=== PATIENT | male | born 1990 | race Caucasian/White ===

== ENCOUNTER 2024-04-20 08:24 | Emergency (ER) | payer BC, SELFPAY ==
[2024-04-20 08:28] VITALS: BP 130/74; PULSE 78; RESP 20; TEMP 36.8; O2SAT 100
--- NOTE | 2024-04-20 08:38 | ED.URI ---
HPI - URI/Sore Throat General Chief Complaint: Upper Respiratory Infection Stated Complaint: ears/throat/cough Source: patient Mode of arrival: ambulatory Limitations: no limitations History of Present Illness HPI Narrative: 34-year-old male presented for complaint of bilateral ear pressure for 2 days. He states about 4 days ago started with an intermittent fever and nasal congestion. Since then the fever has resolved. He denies shortness of breath, wheezing nausea, vomiting, fevers or body aches. Took Tylenol . Denies sick contacts. Related Data Allergies Allergy/AdvReac Type Severity Reaction Status Date / Time amoxicillin Allergy Severe Throat Verified 07/14/17 14:20 swelling egg Allergy Severe throat Verified 07/14/17 14:20 swelling Penicillins Allergy Severe swelling Verified 07/14/17 14:20 Dairy Allergy Intermediate GI Uncoded 07/14/17 14:20 Review of Systems Review of Systems: CONSTITUTIONAL: Denies malaise, chills, or fever. EYES: Denies visual changes, redness, or discharge. ENT: Denies rhinorrhea, sinus pain, and sore throat. Reports ear pain CARDIOVASCULAR: Denies chest pain, palpitations, or edema. RESPIRATORY: Denies cough or dyspnea. GASTROINTESTINAL: Denies abdominal pain, nausea, vomiting, diarrhea SKIN: Denies rash or itching. MUSCULOSKELETAL: Denies myalgia. NEUROLOGIC: Denies headache. All systems reviewed & are unremarkable except as noted in HPI and below PMFSH Comments At time of signature, agree with nursing past medical, surgical, social and family history. There is no relevant family history pertinent to the presenting complaint Exam Narrative: GENERAL: Well-appearing EYES: PERRLA, conjunctivae clear ENT: Nasal congestion. Mucous membranes moist. bilateral TMs erythematous, bulging and intact; canal not erythematous, no drainage, no tragal tenderness. Oropharynx not erythematous without lesions. Tonsils not enlarged and without exudate, no drooling, no hoarseness, no trismus, uvula midline. NECK: Supple. No lymphadenopathy CHEST: Clear to auscultation, breath sounds equal. No wheezing, rhonchi, rales, or stridor. No respiratory distress, speaks in full sentences. HEART: Regular rate and rhythm. No murmur heard. SKIN: Warm, dry, no rash. NEURO: Alert and oriented x3. PSYCH: Normal mood and affect Course Course Emergency Course: Patient is aware of diagnosis, understands and agrees to treatment plan. Anticipatory guidance given. Patient agrees to follow-up as directed and is aware of reasons to seek care at the emergency department. Portions of this record may have been created with voice recognition software Level of Care: Express Care Visit Vital Signs Vital signs: Vital Signs Temperature 98.3 F 04/20/24 08:28 Pulse Rate 78 04/20/24 08:28 Respiratory Rate 20 04/20/24 08:28 Blood Pressure 130/74 04/20/24 08:28 Pulse Oximetry 100 04/20/24 08:28 Oxygen Delivery Room Air 04/20/24 08:28 Temperature 98.3 F 04/20/24 08:28 Pulse Rate 78 04/20/24 08:28 Respiratory Rate 20 04/20/24 08:28 Blood Pressure 130/74 04/20/24 08:28 Pulse Oximetry 100 04/20/24 08:28 Oxygen Delivery Room Air 04/20/24 08:28 Reviewed Discharge Plan Discharge Clinical Impression: Otitis media Qualifiers: Otitis media type: suppurative Chronicity: acute Laterality: bilateral Recurrence: non-recurrent Spontaneous tympanic membrane rupture: without spontaneous rupture Qualified Code(s): H66.003 - Acute suppurative otitis media without spontaneous rupture of ear drum, bilateral Patient Disposition: Home, Self-Care Condition: Stable Instructions: Antibiotic Form, Ear Infection (ED) Additional Instructions: Take antibiotics as directed. Recommend antihistamine such as Benadryl, Zyrtec or Kacie along with Flonase nasal spray, 1 spray in each nostril once daily until symptoms improve Symptomatic treatment includes: rest, fluids, and increase
== END 2024-04-20 08:51 | disposition home or self-care (01) ==
PROVIDERS: Emergency Provider Nurse Practitioner Family
DX: H66.003 Acute suppurative otitis media without spontaneous rupture of ear drum, bilateral (principal)
CPT/HCPCS: 99203; G0463

== ENCOUNTER 2024-04-24 15:33 | Emergency (ER) | payer BC, SELFPAY ==
[2024-04-24 15:40] VITALS: BP 122/68; PULSE 84; RESP 14; TEMP 36.8; O2SAT 100
--- NOTE | 2024-04-24 16:18 | ED.EAR ---
HPI - Ear Problem General Chief complaint: Ear Stated complaint: Ear Pain Time Seen by Provider: 04/24/24 16:11 Source: patient, RN notes reviewed and old records reviewed Mode of arrival: ambulatory Limitations: no limitations History of Present Illness HPI Narrative: Patient presents today complaining of bilateral ear muffling. He was seen at [facility] on 04/20/2024 diagnosed with bilateral otitis media. At that time he was placed on doxycycline for 7 days. He has 3 more days left and states the pain is resolved but he continues to have some ear symptoms, left greater than right. He has also been taking some Robitussin and Tylenol at home as needed. Related Data Allergies Allergy/AdvReac Type Severity Reaction Status Date / Time amoxicillin Allergy Severe Throat Verified 04/24/24 15:38 swelling egg Allergy Severe throat Verified 04/24/24 15:38 swelling Penicillins Allergy Severe swelling Verified 04/24/24 15:38 Dairy Allergy Intermediate GI Uncoded 04/24/24 15:38 Review of Systems Review of Systems: CONSTITUTIONAL: Denies body aches, fever, chills, or sweats. EYES: Denies visual changes, redness, or discharge. ENT: Denies rhinorrhea, congestion, sore throat. + bilateral ear muffling CARDIOVASCULAR: Denies chest pain, palpitations, or edema. RESPIRATORY: Denies cough or dyspnea. GASTROINTESTINAL: Denies abdominal pain, nausea, vomiting, or diarrhea. GENITOURINARY: Denies dysuria or hematuria. SKIN: Denies rash, itching, or wounds. MUSCULOSKELETAL: Denies back pain, joint pain, or myalgia. NEUROLOGIC: Denies headache, numbness, tingling, or weakness. PSYCH: Denies depression or anxiety. PMFSH Comments At time of signature, I have reviewed and agree with nursing past medical, surgical, social and family history unless otherwise noted. Please see nursing chart for further information. There is no relevant family history pertinent to the presenting complaint Exam Narrative: GENERAL: Well-appearing, well-nourished, and in no acute distress. HEAD: Normocephalic, atraumatic. EYES: EOMI. No redness or drainage. Conjunctivae normal. ENT: Mucous membranes pink and moist. Nares clear. No rhinorrhea. Right TM normal. Left TM slightly erythematous with a mild effusion. Throat normal. Uvula midline. NECK: Normal AROM. CHEST: No respiratory distress. MUSCULOSKELETAL: No bony tenderness. EXTREMITIES: Normal range of motion. No edema. SKIN: Warm, dry, no rash. Capillary refill normal. Normal skin turgor. NEURO: No focal deficits. Alert and oriented x3. Gait steady. PSYCH: Normal affect. No signs of depression or anxiety. Course Course Level of Care: Express Care Visit Vital Signs Vital signs: Vital Signs Temperature 98.2 F 04/24/24 15:40 Pulse Rate 84 04/24/24 15:40 Respiratory Rate 14 04/24/24 15:40 Blood Pressure 122/68 04/24/24 15:40 Pulse Oximetry 100 04/24/24 15:40 Oxygen Delivery Room Air 04/24/24 15:40 Temperature 98.2 F 04/24/24 15:40 Pulse Rate 84 04/24/24 15:40 Respiratory Rate 14 04/24/24 15:40 Blood Pressure 122/68 04/24/24 15:40 Pulse Oximetry 100 04/24/24 15:40 Oxygen Delivery Room Air 04/24/24 15:40 Reviewed Medical Decision Making MDM Narrative Medical decision making narrative: Recommend patient continue his antibiotics and take a decongestant such as Sudafed or use an intranasal steroid such as Flonase for his muffling symptoms. Patient agrees with plan. Anticipatory guidance given. Differential Diagnosis Differential Diagnosis: Otitis media, otitis externa, ruptured TM, serous otitis, cerumen impaction Vital Signs Vital Signs: Vital Signs Temperature 98.2 F 04/24/24 15:40 Pulse Rate 84 04/24/24 15:40 Respiratory Rate 14 04/24/24 15:40 Blood Pressure 122/68 04/24/24 15:40 Pulse Oximetry 100 04/24/24 15:40 Oxygen Delivery Room Air 04/24/24 15:40 Temperature 98.2 F 04/24/24 15:40 Pulse
== END 2024-04-24 16:26 | disposition home or self-care (01) ==
PROVIDERS: Emergency Provider Nurse Practitioner
DX: H66.92 Otitis media, unspecified, left ear (principal)
CPT/HCPCS: 99211; G0463

== ENCOUNTER 2024-05-04 16:50 | Emergency (ER) | payer BC, SELFPAY ==
[2024-05-04 16:55] VITALS: BP 130/78; PULSE 68; RESP 20; TEMP 37.5; O2SAT 100
--- NOTE | 2024-05-04 17:01 | ED.URI ---
HPI - URI/Sore Throat General Chief Complaint: Upper Respiratory Infection Stated Complaint: Ear Pain/Cough/Sinus Pressure Time Seen by Provider: 05/04/24 17:01 Source: patient Mode of arrival: ambulatory Limitations: no limitations History of Present Illness HPI Narrative: 34 yo M presents with c/o L ear pain , sinus congestion and pressure and cough. Has had ear pain , sinus congestion, postnasal drainage for approx. 2 wks. Was seen here apr 24 with ear pain and given doxycycline and no improvement in pain. Denies fever. no CP or SOB. Not taking any OTC meds to treat symptoms. All systems reviewed and negative except as noted above. Related Data Allergies Allergy/AdvReac Type Severity Reaction Status Date / Time amoxicillin Allergy Severe Throat Verified 05/04/24 16:53 swelling egg Allergy Severe throat Verified 05/04/24 16:53 swelling Penicillins Allergy Severe swelling Verified 05/04/24 16:53 Dairy AdvReac Intermediate GI Uncoded 05/04/24 16:53 Review of Systems Review of Systems: CONSTITUTIONAL: Denies fever, chills, or sweats. EYES: Denies visual changes, redness, or discharge. ENT: reports rhinorrhea, congestion, sinus pressure, postnasal drainage. Denies sore throat. Reports left ear pain. CARDIOVASCULAR: Denies chest pain, palpitations, or edema. RESPIRATORY: Denies cough or dyspnea. GASTROINTESTINAL: Denies abdominal pain, nausea, vomiting, or diarrhea. GENITOURINARY: Denies dysuria or hematuria. SKIN: Denies rash or itching. MUSCULOSKELETAL: Denies back pain, joint pain, or myalgia. NEUROLOGIC: Denies headache, numbness, or weakness. PSYCHIATRIC: Denies anxiety or depression. All other systems reviewed are negative, except as documented in HPI. [facility] Comments At time of signature, agree with nursing past medical, surgical, social and family history. There is no relevant family history pertinent to the presenting complaint. Exam Narrative: GENERAL: This is a well-nourished, well-developed patient, in no apparent distress. HEAD: normocephalic, atraumatic. EYES: PERRL. Sclera clear/white. Vision is grossly intact. EARS: External ears normal, auditory canals clear and without drainage, Fluid bilateral TMs with air bubbles. No erythema perforation bilaterally. Hearing grossly intact. NOSE: External nose normal with Clear nasal drainage, moderate congestion, erythema swelling to bilateral nares THROAT: Mucous membranes moist, Postnasal drainage with mild erythema. No swelling or exudates. NECK: Neck supple, non-tender without lymphadenopathy, masses or thyromegaly. CARDIOVASCULAR: Regular rate and rhythm without murmurs, gallops, or rubs. RESPIRATORY: Clear to auscultation. Breath sounds equal bilaterally. No wheezes, rales, or rhonchi. SKIN: warm, Dry, intact with no suspicious lesions or rash, good texture and turgor. NEURO: awake, alert, and oriented to person, place and time. There were no obvious focal neurologic abnormalities. EXTREMITIES: No joint tenderness, effusion, or edema noted. Course Course Level of Care: Express Care Visit Vital Signs Vital signs: Vital Signs Temperature 37.5 C 05/04/24 16:55 Pulse Rate 68 05/04/24 16:55 Respiratory Rate 20 05/04/24 16:55 Blood Pressure 130/78 05/04/24 16:55 Pulse Oximetry 100 05/04/24 16:55 Oxygen Delivery Room Air 05/04/24 16:55 Temperature 37.5 C 05/04/24 16:55 Pulse Rate 68 05/04/24 16:55 Respiratory Rate 20 05/04/24 16:55 Blood Pressure 130/78 05/04/24 16:55 Pulse Oximetry 100 05/04/24 16:55 Oxygen Delivery Room Air 05/04/24 16:55 reviewed MDM - URI/Sore Throat MDM Narrative Medical decision making narrative: will treat patient for bacterial sinusitis due to duration of symptoms and exam findings. Patient is aware of diagnosis, understands and agrees to treatment plan. Anticipatory guidance given. Patient agrees to follow-up as directed and is aware of reasons to s
== END 2024-05-04 17:10 | disposition home or self-care (01) ==
PROVIDERS: Emergency Provider Nurse Practitioner Family
DX: J01.90 Acute sinusitis, unspecified (principal)
CPT/HCPCS: 99213; G0463

== ENCOUNTER 2024-06-11 14:07 | Emergency (ER) | payer BC, SELFPAY ==
[2024-06-11 14:18] VITALS: BP 128/74; PULSE 59; RESP 17; TEMP 36.8; O2SAT 100
[2024-06-11 14:43] LABS: EDUAAPPEAR Clear; EDUABILI Negative (Negative); EDUABLOOD Negative (Negative); EDUACOLOR1 Yellow; EDUAGLUCOSE Negative (Negative); EDUAKETONE Negative (Negative); EDUALEUKO Negative (Negative); EDUANITRATE Negative (Negative); EDUAPROTEIN Negative (Negative); EDUASPGRAVITY 1.015; EDUAUROBILI 0.2
--- NOTE | 2024-06-11 22:02 | ED_ITS ---
HPI - General Adult General Chief complaint: Urogenital-Male Stated complaint: Urinary Problem Time Seen by Provider: 06/11/24 14:22 Source: patient, RN notes reviewed and old records reviewed Mode of arrival: ambulatory Limitations: no limitations History of Present Illness HPI narrative: 34-year-old male to Express Care for complaint of urinary urgency that started yesterday. patient denies urinary frequency, hematuria, abdominal pain, flank pain, penile discharge, risk for STI, testicular pain, bowel changes, nausea, fever , pertinent medical history. 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 patient resting comfortably in exam room in no acute distress. Related Data Allergies Allergy/AdvReac Type Severity Reaction Status Date / Time amoxicillin Allergy Severe Throat Verified 05/04/24 16:53 swelling egg Allergy Severe throat Verified 05/04/24 16:53 swelling Penicillins Allergy Severe swelling Verified 05/04/24 16:53 Dairy AdvReac Intermediate GI Uncoded 05/04/24 16:53 Review of Systems Review of Systems: All systems reviewed & are unremarkable except as noted in HPI and below Constitutional: Constitutional: Reports no additional constitutional complaints Eyes: Eyes: Reports no additional eye complaints ENT: Reports system reviewed and no additional complaints, except as documented Cardiovascular: Cardiovascular: Reports no additional cardiovascular complaints, Denies chest pain and Denies dyspnea Respiratory: Respiratory: Reports no additional respiratory complaints, Denies cough and Denies dyspnea Genitourinary: Genitourinary: Reports as per HPI and Reports urinary urgency Musculoskeletal: Musculoskeletal: Reports no additional musculoskeletal complaints Neurologic: Reports system reviewed and no additional complaints, except as documented Psychiatric: Psychiatric: Reports no additional psychiatric complaints PMFSH Comments At the time of my signature, I reviewed and agree with the nursing past medical, surgical, social, and family history. There is no relevant family history pertinent to the patient complaint. Exam Const: General: cooperative, healthy appearing, comfortable, no acute distress, alert and well nourished Nutritional Appearance: well nourished Orientation/consciousness: patient oriented x3 Limitations: no limitations HENMT: Head: normal to inspection Ears: external ears normal Face/Nose/Sinus: Normal external nose present, Normal nares present, normal facial exam, No erythema and No edema Face and sinus: normal facial exam, no erythema and no edema Mouth: Yes Normal oral and palatal mucosa present Eyes: General: appearance normal, both eyes and all related structures Neck: Neck: normal visual inspection, full ROM and no meningeal signs Chest: Chest palpation & inspection: normal inspection of the chest Resp: Effort & Inspection: normal respiratory effort and able to speak in complete sentences Cardio: Jugular venous distension: no JVD Rate: regular rate Rhythm: regular rhythm Back/Spine/Pelvis: Cervical Spine: cervical ROM normal Skin: General skin exam: normal color, no rashes or lesions noted and turgor normal Neuro: General: patient oriented x3, gait normal, moves all extremities and no meningeal signs Speech: normal speech Gait exam (Neuro): Normal gait present Extrem: General: normal to inspection, full ROM and capillary refill normal Psych: Appearance: grossly normal and well kempt Course Course Emergency Course: Some parts of this dictation were generated by voice recognition software and may contain typographical and/or grammatical inaccuracies. Level of Care: Express Care Visit Vital Signs Vital signs: Vital Signs Temperature 36.8 C 06/11/24 14:18 Pulse Rate 59 L 06/11/24 14:18 Respiratory Rate 17 06/11/24 14:18 Blood Pressure 128/74 06/11/24 14:18 Pulse Oximetry 100 06/11/24 14:18 Temperature 36.8 C 06/11/24 14:18 Pulse Rate 59 L 06/11/24 14:18 Respiratory Rate 17 06/11/24 14:18 Blood Pressure 128/74 06/11/24 14:18 Pulse Oximetry 100 06/11/24 14:18 reviewed Medical Decision Making MDM Narrative Medical decision making narrative: 34-year-old male to Express Care for complaint of urinary urgency that started yesterday. patient denies urinary frequency, hematuria, abdominal pain, flank pain, penile discharge, risk for STI, testicular pain, bowel changes, nausea, fever , pertinent medical history. 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 patient resting comfortably in exam room in no acute distress. Patient is sitting comfortably in exam room nontoxic in appearance. Patient UA negative in clinic. Culture sent. Patient appropriate for outpatient treatment and follow-up. Discharge instructions reviewed with patient, as well as provided in writing per nursing staff. The instructions also include specific and strict return/GO TO THE ER as well as f/u information. All questions have been answered, and the patient deny any further questions with discharge and discharge plan. Some parts of this dictation were generated by voice recognition software and may contain typographical and/or grammatical inaccuracies. Differential Diagnosis Differential Diagnosis: Urinary tract infection, back pain, sexually transmitted infection, acute cystitis, kidney stone Vital Signs Vital Signs: Vital Signs Temperature 36.8 C 06/11/24 14:18 Pulse Rate 59 L 06/11/24 14:18 Respiratory Rate 17 06/11/24 14:18 Blood Pressure 128/74 06/11/24 14:18 Pulse Oximetry 100 06/11/24 14:18 Temperature 36.8 C 06/11/24 14:18 Pulse Rate 59 L 06/11/24 14:18 Respiratory Rate 17 06/11/24 14:18 Blood Pressure 128/74 06/11/24 14:18 Pulse Oximetry 100 06/11/24 14:18 Lab Data Labs: Lab Results 06/11/24 Range/Units 14:40 POC Urine Color Yellow POC Urine Clarity Clear POC Urine pH 7.0 POC Ur Specif [place] 1.015 POC Urine Protein Negative (Negative) POC Ur Glucose (UA) Negative (Negative) POC Urine Ketones Negative (Negative) POC Urine Blood Negative (Negative) POC Urine Nitrite Negative (Negative) POC Urine Bilirubin Negative (Negative) POC Urine Urobilinogen 0.2 POC U Leukocyte Esteras Negative (Negative) Discharge Plan Discharge Clinical Impression: Urinary urgency Patient Disposition: Home, Self-Care Condition: Stable Instructions: Urinary Urgency and Frequency (DC) Additional Instructions: please review detached instructions regarding urinary urgency and frequency for new or worsening symptoms return to Express Care or go to the emergency department Follow-up/Referrals: PHYSICIAN,DIGITAL COMMUNITY MANAGER [Primary Care Provider] -
== END 2024-06-11 14:49 | disposition home or self-care (01) ==
PROVIDERS: Emergency Provider Nurse Practitioner Family
DX: R39.15 Urgency of urination (principal)
CPT/HCPCS: 81003; 87086; 99213; G0463

== ENCOUNTER 2024-09-04 09:10 | Emergency (ER) | payer BC, SELFPAY ==
[2024-09-04 09:20] VITALS: BP 122/77; PULSE 86; RESP 16; TEMP 36.6; O2SAT 100
--- OUTSIDE RECORDS SUMMARY | 2024-09-04 09:36 | XMS_ITS | Clinical Summary ---
Author Organization [facility] Address [address] [place] [address] Phone Care Team Providers Care Cook Relief Name Role Phone Provider, None Primary Care Provider Unavailabl e Allergies Active Allergy Reactions Criticality Noted Date Comments Egg-Derived Products Hives Medium 08/05/2019 Influenza Virus Vaccine Hives 10/19/2016 Measles, Mumps & Rubella Vac Hives 017 Penicillins Hives 10/19/2016 Medications No known medications Active Problems No known active problems Encounters Date Type Department Care Team Description 06/14/2024 5:30 PM [facility] - 06/14/2024 8:38 PM [facility] Emergency [facility] Emergency [address] [place] [address] Luana Trujillo, PAC Urinary frequency Discharge Disposition: Discharged to home or Selfcare 06/14/2024 Travel from Last 3 Months Immunizations Immunization Administration Dates Next Due DTP Vaccine 10/10/1995, 3,1991,1990,1991 Hepatitis A Vaccine, Pediatric/adolescent, 2 Dose Schedule 02/14/2005 Hepatitis B Vaccine, Pediatric/adolescent 03/26/1996,11/13/1995,10/10/1995 Hib Vaccine,unspecified Formulation 09/26,04/06/1993,1991,1990 Inactivated Polio Vaccine 10/10/1995,03/1993,1991,1990 TD VACCINE 07/21/2003 Family History Medical History Relation Name Comments Cancer Paternal Aunt ovarian Relation Name Status Comments Father Alive Mother Alive Paternal Aunt Social History Tobacco Use Types Packs/Day Years Used Date Smoking Tobacco: Never Smokeless Tobacco: Never Tobacco Cessation:Counseling Given: No Alcohol Use Standard Drinks/Week Comments Yes 20 (1 standard drink = 0.6 oz pu re alcohol) weekends PHQ-2 Answer Date Recorded Total Score - Questions 1-9 0 12/27 Sexually Active Control Partners Comments Not Currently Sex and Gender Information Value Date Recorded Sex Assigned at Not on file Legal Sex Male 11:52 PM CDT Gender Identity Not on file Sexual Orientation Not on file Last Filed Vital Signs Vital Sign Reading Time Taken Comments Blood Pressure 126/52 06/14/2024 8:40 PM [facility] Pulse 65 06/14/2024 8:40 PM [facility] Temperature 35.9 C (96.7 F) 06/14/2024 5:20 PM [facility] Respiratory Rate 18 06/14/2024 8:40 PM [facility] Oxygen Saturation 98% 06/14/2024 8:40 PM [facility] Inhaled Oxygen Concentration - - Weight 58.5 kg (129 lb) 06/14/2024 5:20 PM [facility] Height 160 cm (5' 3 ) 06/14/2024 5:20 PM [facility] Body Mass Index 22.85 06/14/2024 5:20 PM [facility] Plan of Treatment Health Maintenance Due Date Last Done Comments Hepatitis C Virus (HCV) Screening 1991 Influenza Immunization (#1) 2024 SARS-COV-2 Immunization (2023- season) 2024 Respiratory Syncytial Virus (RSV) Immunization (Adult) (1 - 1-dose 75+ series) 2066 Hepatitis B Immunization Completed 996, 11/13/1995, 10/10/1995 DTaP/Tdap/Td Immunization Discontinued 2002, 10/10/1995, 04/06/1993, Additional history exists Meningococcal Immunization (ACWY) Aged Out No longer eligible based on patient's age to complete this topic Pneumococcal Immunization Combined Aged Out No longer eligible based on patient's age to complete this topic Rotavirus Immunization Aged Out No lo nger eligible based on patient's age to complete this topic Procedures Procedure Name Priority Date/Time Associated Diagnosis Comments CHLAMYDIA & GC DNA PROBE STAT 06/14/2024 8:35 PM [facility] CHLAMYDIA & GC DNA PROBE > 12 STAT 06/14/2024 8:35 [address] [facility] [address] RENAL STONE STUDY (ABDOMEN AND PELVIS W/O CONTRAST) Stat with Interpretation 06/14/2024 6:28 PM [facility] CBC WITH AUTO DIFFERENTIAL STAT 06/14/2024 6:15 PM [facility] LIPASE STAT 06/14/2024 6:15 PM [facility] COMPLETE BLOOD COUNT (CBC) WITH DIFF STAT 06/14/2024 6:15 PM [facility] CMP (COMPREHENSIVE METABOLIC PANEL) STAT 06/14/2024 6:15 PM [facility] URINALYSIS REFLEX IF INDICATED BY ABNORMAL RESULTS STAT 06/14/2024 5:25 PM [facility] from Last 3 Months Results * CHLAMYDIA & GC DNA PROBE > 12 (06/14/2024 8:35 PM [facility]) CHLAMYDIA DNA NEGATIVE NEGATIVE 06/15/2024 8:54 PM [facility] Comment: Presumed negative for C. trachomatis. A negative result does not preclude C. trachomatis infection because results are dependent on adequate specimen collection, absence of inhibitors, and sufficient DNA to be detected. This test was performed using SILVESTRE 5800 Real Time PCR. GC DNA NEGATIVE NEGATIVE 06/15/2024 8:54 PM [facility] Comment: Presumed negative for N. gonorrhoeae. A negative result does not preclude N. gonorrhoeae infection because results are dependent on adequate specimen collection, absence of inhibitors, and sufficient DNA to be detected. This test was performed using SILVESTRE 5800 Real Time PCR. Other URINE / Unknown Non-Phlebotomy Collection / Unknown 06/14/2024 8:35 PM [facility] 06/14/2024 9:13 PM [facility] us Luana Belle Page PAC MICROBIOLOGY - GENERAL ORDER ROSS Final Result [facility] [address] [place] [address], [place] * CT RENAL STONE STUDY (ABDOMEN AND PELVIS W/O CONTRAST) (06/14/2024 6:28 PM [facility]) Anatomical Region Laterality Modality Abdomen N/A Computed Tomogra phy 06/14/2024 8:15 PM [facility] Impressions 06/14/2024 8:17 PM [facility] IMPRESSION: 1. No ureteral calculi or obstructive uropathy. 2. Nonobstructing left nephrolithiasis. 3. Additional findings; as detailed. Narrative 06/14/2024 8:17 PM [facility] EXAM DESCRIPTION: CT RENAL STONE STUDY (ABDOMEN AND PELVIS W/O CONTRAST) REASON FOR STUDY: pt c/o LT side flank pain and urinary freq since saturday. no hx of surgery TECHNIQUE: CT scan of the abdomen and pelvis performed without intravenous and without oral contrast using helical scanning technique. Reconstructed coronal and sagittal MPR images reviewed. All images stored on PACS. Automated exposure control was used as a dose optimization technique for this examination. COMPARISON: CT of the abdomen and pelvis dated 07/10/2019. FINDINGS: The sensitivity for detection of visceral lesions is diminished without the use of intravenous contrast. LOWER CHEST: No significant pulmonary abnormalities. No effusion. LIVER: Normal size. No identified cystic or solid masses. GALLBLADDER: Partially contracted limiting evaluation. No stones identified. No wall thickening or inflammatory changes. BILE DUCTS: No intrahepatic or extrahepatic ductal dilatation. SPLEEN: Normal size. No focal lesions. PANCREAS: No identified cystic or solid masses. No significant calcifications. No adjacent inflammation or peripancreatic fluid collections. Pancreatic duct not dilated. ADRENALS: Normal. KIDNEYS/URINARY TRACT: No identified significant cystic or solid masses. A few nonobstructing renal calculi are noted within the left kidney largest measuring up to 3 mm at the midpole. No hydronephrosis or hydroureter. Urinary bladder is unremarkable. GI: No dilated bowel loops. No obvious wall thickening. Normal appendix. No significant diverticular disease. PERITONEUM: A few phleboliths are seen within the pelvis. No ascites or free air. RETROPERITONEUM: No mass or adenopathy. REPRODUCTIVE: No significant abnormality. VASCULATURE: No abdominal aortic aneurysm. MUSCULOSKELETAL: No acute abnormality. Mild multilevel degenerative changes of the spine. OTHER: No other abnormality. THIS IS AN ELECTRONICALLY VERIFIED FINAL REPORT 06/14/2024 8:15 PM - Electronically signed by Henrry Jeter M.D. MF: [email or web address] Report ID: [id number] Reading Location: [place] [address] Procedure Note Henrry Jeter, DO - 06/14/2024 EXAM DESCRIPTION: CT RENAL STONE STUDY (ABDOMEN AND PELVIS W/O CONTRAST) REASON FOR STUDY: pt c/o LT side flank pain and urinary freq since saturday. no hx of surgery TECHNIQUE: CT scan of the abdomen and pelvis performed without intravenous and without oral contrast using helical scanning technique. Reconstructed coronal and sagittal MPR images reviewed. All images stored on PACS. Automated exposure control was used as a dose optimization technique for this examination. COMPARISON: CT of the abdomen and pelvis dated 07/10/2019. FINDINGS: The sensitivity for detection of visceral lesions is diminished without the use of intravenous contrast. LOWER CHEST: No significant pulmonary abnormalities. No effusion. LIVER: Normal size. No identified cystic or solid masses. GALLBLADDER: Partially contracted limiting evaluation. No stones identified. No wall thickening or inflammatory changes. BILE DUCTS: No intrahepatic or extrahepatic ductal dilatation. SPLEEN: Normal size. No focal lesions. PANCREAS: No identified cystic or solid masses. No significant calcifications. No adjacent inflammation or peripancreatic fluid collections. Pancreatic duct not dilated. ADRENALS: Normal. KIDNEYS/URINARY TRACT: No identified significant cystic or solid masses. A few nonobstructing renal calculi are noted within the left kidney largest measuring up to 3 mm at the midpole. No hydronephrosis or hydroureter. Urinary bladder is unremarkable. GI: No dilated bowel loops. No obvious wall thickening. Normal appendix. No significant diverticular disease. PERITONEUM: A few phleboliths are seen within the pelvis. No ascites or free air. RETROPERITONEUM: No mass or adenopathy. REPRODUCTIVE: No significant abnormality. VASCULATURE: No abdominal aortic aneurysm. MUSCULOSKELETAL: No acute abnormality. Mild multilevel degenerative changes of the spine. OTHER: No other abnormality. THIS IS AN ELECTRONICALLY VERIFIED FINAL REPORT 06/14/2024 8:15 PM - Electronically signed by Henrry Jeter M.D. MF: [email or web address] Report ID: [id number] Reading Location: [id number] IMPRESSION: 1. No ureteral calculi or obstructive uropathy. 2. Nonobstructing left nephrolithiasis. 3. Additional findings; as detailed. us Luana Weakley Page PAC IMG CT ORDERABLES Final Resu lt * (ABNORMAL) CBC with Auto Differential (06/14/2024 6:15 PM [facility]) Pathologist [facility] WBC 6.71 4.00 - 12.00 10(3)/mcL 06/14/2024 6:29 PM [facility] RBC 4.23(L) 4.40 - 5.80 10(6)/mcL 06/14/2024 6:29 PM [facility] HEMOGLOBIN (HGB) 13.1 13.0 - 16.5 g/dL 06/14/2024 6:29 PM [facility] HEMATOCRIT (HCT) 39.5 38.0 - 50.0 % 06/14/2024 6:29 PM [facility] MCV 93.4 82.0 - 96.0 fL 06/14/2024 6:29 PM [facility] MCH 31.0 26.0 - 32.0 pg 06/14/2024 6:29 PM [facility] MCHC 33.2 31.0 - 36.0 g/dL 06/14/2024 6:29 PM [facility] PLATELET COUNT 221 140 - 440 10(3)/mcL 06/14/2024 6:29 PM [facility] RDW 11.9 11.8 - 15.5 % 06/14/2024 6:29 PM [facility] MPV 10.1 8.0 - 12.6 fL 06/14/2024 6:29 PM [facility] NEUTROPHILS 51.9 40.0 - 68.0 % 06/14/2024 6:29 PM [facility] LYMPHOCYTES 32.6 19.0 - 49.0 % 06/14/2024 6:29 PM [facility] MONOCYTES 10.0 3.0 - 13.0 % 06/14/2024 6:29 PM [facility] EOSINOPHILS 3.9 0.0 - 8.0 % 06/14/2024 6:29 PM [facility] BASOPHILS 1.6(H) 0.0 - 1.0 % 06/14/2024 6:29 PM [facility] ABSOLUTE NEUTROPHILS 3.48 1.40 - 5.30 10(3)/[facility] 06/14/2024 6:29 PM [facility] ABSOLUTE LYMPHOCYTES 2.19 0.90 - 3.30 10(3)/[facility] 06/14/2024 6:29 PM [facility] ABSOLUTE MONOCYTES 0.67 0.10 - 0.90 10(3)/[facility] 06/14/2024 6:29 PM [facility] ABSOLUTE EOSINOPHIL 0.26 0.00 - 0.50 10(3)/[facility] 06/14/2024 6:29 PM [facility] ABSOLUTE BASOPHILS 0.11(H) 0.00 - 0.10 10(3)/[facility] 06/14/2024 6:29 PM [facility] NRBC PER 100 WBC 0 06/14/20 24 6:29 PM [facility] Blood Venipuncture / Unknown 06/14/2024 6:15 PM [facility] 06/14/2024 6:27 PM [facility] Luana Belle Page PAC HEMATOLOGY ORDERABLES Final Result [facility] [address] [place] [address] * Lipase [id number] (06/14/2024 6:15 PM [facility]) LIPASE 20 8 - 78 U/L 06/14/2024 6:48 PM [facility] Blood Venipuncture / Unknown 06/14/2024 6:15 PM [facility] 06/14/2024 6:27 PM [facility] Luana Rodriguezn Page PAC CHEMISTRY ORDERABLES Final R esult [facility] [address] [place] [address] * CMP (Comprehensive Metabolic Panel) (06/14/2024 6:15 PM [facility]) SODIUM 140 136 - 145 mmol/L 06/14/2024 6:48 PM [facility] POTASSIUM 4.1 3.5 - 5.1 mmol/L 06/14/2024 6:48 PM [facility] CHLORIDE 105 98 - 107 mmol/L 06/14/2024 6:48 PM [facility] CO2, VENOUS 27 22 - 30 mmol/L 06/14/2024 6:48 PM [facility] ANION GAP 12.1 <18.0 mmol/L 06/14/2024 6:48 PM [facility] GLUCOSE 95 70 - 99 mg/dL 06/14/2024 6:48 PM [facility] BUN 13 9 - 21 mg/dL 06/14/2024 6:48 PM [facility] CREATININE, BLOOD 1.08 0.70 - 1.30 mg/dL 06/14/2024 6:48 PM [facility] BUN/CREATININE RATIO 12 12 - 20 ratio 06/14/2024 6:48 PM [facility] TOTAL PROTEIN 6.7 6.3 - 8.2 g/dL 06/14/2024 6:48 PM [facility] ALBUMIN 4.2 3.5 - 5.0 g/dL 06/14/2024 6:48 PM [facility] A/G RATIO 1.7 1.0 - 2.2 06/14/2024 6:48 PM [facility] CALCIUM 9.3 8.7 - 10.5 mg/dL 06/14/2024 6:48 PM [facility] T BILI 0.4 0.2 - 1.2 mg/dL 06/14/2024 6:48 PM [facility] SGOT (AST) 23 5 - 34 U/L 06/14/2024 6:48 PM [facility] SGPT (ALT) 27 0 - 55 U/L 06/14/2024 6:48 PM [facility] ALKALINE PHOSPHATASE 67 40 - 150 U/L 06/14/2024 6:48 PM [facility] GFR, ESTIMATED >60 >=60 06/14/2024 6:48 PM [facility] Comment: Creatinine Clearance is the preferred criteria for selecting drug dose adjustments in renally impaired patients. The GFR is provided as additional pertinent clinical information. GFR is reported in mL/min/1.73 sq m. Calculation based on the Chronic Kidney Disease Epidemiology Collaboration (CKD- EPI) equation refit without adjustment for race. GFR, EST. >60 >=60 024 6:48 PM [facility] GFR, EST. NONAFRICAN >60 >=60 06/14/2024 6:48 PM [facility] Blood Venipuncture / Unknown 06/14/2024 6:15 PM [facility] 06/14/2024 6:27 PM [facility] Luana Belle Page PAC CHEMISTRY ORDERABLES Final R esult [facility] [address] [place] [address] * (ABNORMAL) URINALYSIS REFLEX IF INDICATED BY ABNORMAL RESULTS (06/14/2024 5:25 PM [facility]) SPECIFIC GRAVITY 1.015 1.003 - 1.030 06/14/2024 5:56 PM [facility] URINE PH 6.5 5.0 - 9.0 06/14/2024 5:56 PM [facility] WBC ESTERASE 25 /ul(A) Negative 06/14/2024 5:56 PM [facility] NITRITE Negative Negative 06/14/2024 5:56 PM [facility] PROTEIN, RANDOM URINE 15 mg/dL(A) Negative 06/14/2024 5:56 PM [facility] URINE GLUCOSE, QUAL Negative Negative 06/14/2024 5:56 PM [facility] URINE KETONES Negative Negative 06/14/2024 5:56 PM [facility] UROBILINOGEN 1 mg/dL(A) Normal mg/dL 06/14/2024 5:56 PM [facility] URINE BLOOD Negative Negative mili/ul 06/14/2024 5:56 PM [facility] URINALYSIS COLOR Yellow 06/14/20 5:56 PM [facility] URINALYSIS CLARITY Clear 06/14/2024 5:56 PM [facility] WBC (Urine) 0-5 Negative, 0-5 /hpf 06/14/2024 5:56 PM [facility] URINE RBC'S Negative Negative, 0-2 /hpf 06/14/2024 5:56 PM [facility] EPITHELIAL CELLS Occasional /lpf 06/14/20 5:56 PM [facility] BACTERIA, URINE Few(A) Negative /hpf 06/14/2024 5:56 PM [facility] Urine URINE SPECIMEN COLLECTION, CLEAN CATCH / Unknown Non-Phlebotomy Collection / Unknown 06/14/2024 5:25 PM [facility] 06/14/2024 5:37 PM [facility] us Luana Belle Page PAC URINE ORDERABLES Final Resul t [facility] [address] [facility] [place] [address] from Last 3 Months Insurance Care Teams Cook Relief Relationship Specialty Start Date End Date Provider, None EDDI PCP - General 06/14/24
--- NOTE | 2024-09-04 09:53 | ED_ITS ---
HPI - URI/Sore Throat General Chief Complaint: Upper Respiratory Infection Stated Complaint: pressure behind eyes/cheeks Time Seen by Provider: 09/04/24 09:53 Source: patient Mode of arrival: ambulatory Limitations: no limitations History of Present Illness HPI Narrative: 34-year-old male presents with complaint of cough, nasal congestion, fatigue, body aches, fever for 3 days. Patient's and children all have influenza a. Patient does not want flu testing. Patient thinks he has bacterial sinusitis due to sinus pressure. Is not taking any zifl-you-[id number] medications to treat his symptoms. All systems reviewed and negative except as noted above. Related Data Allergies Allergy/AdvReac Type Severity Reaction Status Date / Time amoxicillin Allergy Severe Throat Verified 09/04/24 09:44 swelling egg Allergy Severe throat Verified 09/04/24 09:44 swelling Penicillins Allergy Severe swelling Verified 09/04/24 09:44 Dairy AdvReac Intermediate GI Uncoded 05/04/24 16:53 Review of Systems Review of Systems: CONSTITUTIONAL: Reports fever, chills, or sweats. EYES: Denies visual changes, redness, or discharge. ENT: reports rhinorrhea, congestion, sinus pressure. Denies sore throat, or otalgia. CARDIOVASCULAR: Denies chest pain, palpitations, or edema. RESPIRATORY: Denies cough or dyspnea. GASTROINTESTINAL: Denies abdominal pain, nausea, vomiting, or diarrhea. GENITOURINARY: Denies dysuria or hematuria. SKIN: Denies rash or itching. MUSCULOSKELETAL: Denies back pain. Reports joint pain, myalgia. NEUROLOGIC: Denies headache, numbness, or weakness. PSYCHIATRIC: Denies anxiety or depression. All other systems reviewed are negative, except as documented in HPI. PMFSH Comments At time of signature, agree with nursing past medical, surgical, social and family history. There is no relevant family history pertinent to the presenting complaint. Exam Narrative: GENERAL: This is a well-nourished, well-developed patient, in no apparent distress. HEAD: normocephalic, atraumatic. EYES: PERRL. Sclera clear/white. Vision is grossly intact. EARS: External ears normal, auditory canals clear and without drainage, fluid bilateral TMs without erythema or perforation. Hearing grossly intact. NOSE: External nose normal with Clear nasal drainage, erythema to bilateral nares, moderate congestion. THROAT: Mucous membranes moist, Erythema postnasal drainage NECK: Neck supple, non-tender without lymphadenopathy, masses or thyromegaly. CARDIOVASCULAR: Regular rate and rhythm without murmurs, gallops, or rubs. RESPIRATORY: Clear to auscultation. Breath sounds equal bilaterally. No wheezes, rales, or rhonchi. SKIN: warm, Dry, intact with no suspicious lesions or rash, good texture and turgor. NEURO: awake, alert, and oriented to person, place and time. There were no obvious focal neurologic abnormalities. EXTREMITIES: No joint tenderness, effusion, or edema noted. Course Course Level of Care: Express Care Visit Vital Signs Vital signs: Vital Signs Temperature 36.6 C 09/04/24 09:20 Pulse Rate 86 09/04/24 09:20 Respiratory Rate 16 09/04/24 09:20 Blood Pressure 122/77 09/04/24 09:20 Pulse Oximetry 100 09/04/24 09:20 Oxygen Delivery Room Air 09/04/24 09:20 Temperature 36.6 C 09/04/24 09:20 Pulse Rate 86 09/04/24 09:20 Respiratory Rate 16 09/04/24 09:20 Blood Pressure 122/77 09/04/24 09:20 Pulse Oximetry 100 09/04/24 09:20 Oxygen Delivery Room Air 09/04/24 09:20 reviewed MDM - URI/Sore Throat MDM Narrative Medical decision making narrative: educated patient regarding viral versus bacterial sinusitis. Explain to him that he most likely has influenza A due to recent exposure at home. Recommend he purchase [id number] pseudoephedrine to treat his congestion. Will treat sinusitis and joint pain with Medrol Dosepak. Please be advised this is a medical document. It is intended for forr-nz-hrfb communication. It is written in medical language and may contain unfamiliar abbreviations or verbiage. Medical documents are intended to carry relevant information, facts as evident, and the clinical opinion of the practitioner at the time of the encounter. This report may have been done utilizing a voice recognition system. Attempts have been made to correct errors. However, there may be uncorrected grammatical, spelling, and recognition errors present. The file time of this note does not necessarily represent the time of service. Differential Diagnosis Differential diagnosis: Likely upper respiratory infection, sinusitis, viral infection and influenza Discharge Plan Discharge Clinical Impression: Acute viral sinusitis, Exposure to influenza Patient Disposition: Home, Self-Care Condition: Stable Instructions: Sinusitis (ED) Additional Instructions: your symptoms are viral and may last 10-14 days. Take medications as prescribed. Purchase [id number]-[id number] pseudoephedrine and take as directed on packaging. This medication is found by the pharmacy counter. Alternate between ibuprofen and Tylenol every 4 hours to treat pain and fever. Drink at least 64 oz of water a day. Follow-up with your primary care physician if symptoms are not improving. Patient Language: Kazakh Prescriptions: New benzonatate 200 mg capsule 200 mg PO TID PRN (Reason: cough) Qty: 20 0RF methylprednisolone [Medrol (Shay)] 4 mg tablets,dose pack See Rx Instructions PO .COMPLEX Qty: 21 0RF Rx Instructions: orally per package directions Follow-up/Referrals: [facility] [Primary Care Provider] - Time of Disposition: 10:02
== END 2024-09-04 10:13 | disposition home or self-care (01) ==
PROVIDERS: Emergency Provider Nurse Practitioner Family
DX: J01.90 Acute sinusitis, unspecified (principal); Z20.828 Contact with and (suspected) exposure to other viral communicable diseases
CPT/HCPCS: 99213; G0463

== ENCOUNTER 2024-11-04 08:38 | Emergency (ER) | payer BC, SELFPAY ==
[2024-11-04 08:42] VITALS: BP 147/87; PULSE 59; RESP 16; TEMP 36.9; O2SAT 99
--- NOTE | 2024-11-04 08:49 | ED_ITS ---
HPI - Dental/Oral General Chief complaint: Dental/Oral Stated complaint: sores in mouth Source: patient Mode of arrival: ambulatory History of Present Illness HPI Narrative: 34 y/o male presented for c/o sores inside his mouth. Onset 3 days. Reports pain is mostly to the upper mouth. States it started after a night of heavy alcohol consumption of vodka and limes, and then emesis the following day. Applied some cream from desulfurizer operator to the gums and ibuprofen which helps temporarily. Denies lesions to the lips or inner cheeks, tongue or sore throat, n/v/d/f/c. Complaint: tooth pain Related Data Allergies Allergy/AdvReac Type Severity Reaction Status Date / Time amoxicillin Allergy Severe Throat Verified 11/04/24 08:47 swelling egg Allergy Severe throat Verified 11/04/24 08:47 swelling Penicillins Allergy Severe swelling Verified 11/04/24 08:47 Dairy AdvReac Intermediate GI Uncoded 11/04/24 08:47 Review of Systems Review of Systems: CONSTITUTIONAL: Denies body aches, fever, chills ENT: Denies rhinorrhea, congestion, sore throat, or otalgia. Reports mouth pain CARDIOVASCULAR: Denies chest pain, palpitations RESPIRATORY: Denies cough or dyspnea. SKIN: Denies rash, itching, or wounds. MUSCULOSKELETAL: Denies myalgia. NEUROLOGIC: Denies headache, numbness, tingling, or weakness. PMFSH Comments At time of signature, I have reviewed and agree with nursing past medical, surgical, social and family history unless otherwise noted. Please see nursing chart for further information. There is no relevant family history pertinent to the presenting complaint Exam Narrative: GENERAL: well appearing. no acute distress. HEAD: Normocephalic, atraumatic. EYES: EOMI. No redness or drainage. Conjunctivae normal. ENT: Mucous membranes pink and moist. Soft palate severely erythematous. Tonsils 1+ without exudate. No vesicles or lesions to the lips or cheeks. No swelling. TMs normal bilaterally. Throat normal. Uvula midline. No hoarseness, trismus, drooling, hot potato voice, or difficulty swallowing. NECK: Normal AROM. No lymphadenopathy. CHEST: No respiratory distress. Clear to auscultation. HEART: Regular rate and rhythm. No murmur appreciated. SKIN: Warm, dry, no rash. Normal skin turgor. NEURO: No focal deficits. Alert and oriented x3. Gait steady. Course Course Emergency Course: Patient is aware of diagnosis, understands and agrees to treatment plan. Anticipatory guidance given. Patient agrees to follow-up as directed and is aware of reasons to seek care at the emergency department. Portions of this record may have been created with voice recognition software Level of Care: Express Care Visit Vital Signs Vital signs: Vital Signs Temperature 98.4 F 11/04/24 08:42 Pulse Rate 59 L 11/04/24 08:42 Respiratory Rate 16 11/04/24 08:42 Blood Pressure 147/87 H 11/04/24 08:42 Pulse Oximetry 99 11/04/24 08:42 Oxygen Delivery Room Air 11/04/24 08:42 Temperature 98.4 F 11/04/24 08:42 Pulse Rate 59 L 11/04/24 08:42 Respiratory Rate 16 11/04/24 08:42 Blood Pressure 147/87 H 11/04/24 08:42 Pulse Oximetry 99 11/04/24 08:42 Oxygen Delivery Room Air 11/04/24 08:42 MDM - Dental/Oral MDM Narrative Medical decision making narrative: Discussed physical exam findings and neg strep result. Advised supportive measures and signs/symptoms to go to the ER. Pt is appropriate for outpt treatment and f/u. Differential Diagnosis Differential diagnosis: Likely gingival abscess, dental caries, dental abscess and aphthous ulcer Lab Data Labs: Lab Results 11/04/24 Range/Units 09:13 POC Grp A Strep Screen Negative (Negative) Discharge Plan Discharge Clinical Impression: Acute oral pain Patient Disposition: Home Condition: Stable Instructions: Antibiotic Form, Gingivostomatitis (ED) Additional Instructions: Tylenol every 8 hours as needed for pain/fever Avoid foods that irritate your mouth. These may include nuts, chips, pretzels, certain spices, salty foods and acidic fruits, such as pineapple, grapefruit and oranges. Regular brushing after meals and flossing once a day can keep your mouth clean and free of foods that might trigger a sore. Use a soft brush to help prevent irritation to delicate mouth tissues, and avoid toothpastes and mouth rinses that contain sodium lauryl sulfate Soft foods, cool liquids, warm tea. Gargle with warm saltwater twice a day. Chloraseptic spray and throat lozenges. Rest and stay hydrated. Consult your doctor if you experience: ? Unusually large canker sores ? Recurring sores, with new ones developing before old ones heal, or frequent outbreaks ? Persistent sores, lasting two weeks or more ? Sores that extend into the lips themselves ? Pain that you can't control with self-care measures ? Extreme difficulty eating or drinking ? High fever along with canker sores --Follow up with your PCP --Go to the ER immediately if you cannot swallow your saliva, trouble breathing/wheezing, throat swelling, pain is persistent and severe Patient Language: Tamazight Prescriptions: New prednisone 20 mg tablet 40 mg PO DAILY 4 Days Qty: 8 0RF lidocaine HCl [Lidocaine Viscous] 2 % solution 1 applic mucous membrane TID PRN (Reason: pain) Qty: 100 0RF Rx Instructions: apply with cotton swab to site of pain Follow-up/Referrals: PHYSICIAN,SURGICAL SERVICES ASSISTANT [Primary Care Provider] - Time of Disposition: 09:26
--- OUTSIDE RECORDS SUMMARY | 2024-11-04 09:03 | XMS_ITS | Clinical Summary ---
Author Organization [facility] Address [address] [place] [address] Phone Care Team Providers Care Pediatric Physiatrist Name Role Phone Provider, None Primary Care Provider Unavailabl e Allergies Active Allergy Reactions Criticality Noted Date Comments Egg-Derived Products Hives Medium 08/05/2019 Influenza Virus Vaccine Hives 10/19/2016 Measles, Mumps & Rubella Vac Hives 017 Penicillins Hives 10/19/2016 Medications No known medications Active Problems No known active problems Immunizations Immunization Administration Dates Next Due DTP [...] Comments Blood Pressure 126/52 06/14/2024 8:40 PM FILM LOADER Pulse 65 06/14/2024 8:40 PM FILM LOADER Temperature 35.9 C (96.7 F) 06/14/2024 5:20 PM FILM LOADER Respiratory Rate 18 06/14/2024 8:40 PM FILM LOADER Oxygen Saturation 98% 06/14/2024 8:40 PM FILM LOADER Inhaled Oxygen Concentration - - Weight 58.5 kg (129 lb) 06/14/2024 5:20 PM FILM LOADER Height 160 cm (5' 3 ) 06/14/2024 5:20 PM FILM LOADER Body Mass Index 22.85 06/14/2024 5:20 PM FILM LOADER Plan of Treatment Health Maintenance Due Date Last Done Comments Hepatitis C Virus (HCV) Screening 1990 Influenza Immunization (#1) 2024 SARS-COV-2 Immunization ( season) 2024 Respiratory Syncytial Virus (RSV) Immunization [...] on patient's age to complete this topic Insurance Care Teams Pediatric Physiatrist Relationship Specialty Start Date End Date Provider, None [place] PCP - General 06/14/24
[2024-11-04 09:15] LABS: EDSTREPNEGPOS1 Negative (Negative)
== END 2024-11-04 09:32 | disposition home or self-care (01) ==
PROVIDERS: Emergency Provider Nurse Practitioner Family
DX: K13.79 Other lesions of oral mucosa (principal)
CPT/HCPCS: 87081; 87880; 99213; G0463

== ENCOUNTER 2025-05-20 19:41 | Emergency (ER) | payer OTHER, SELFPAY ==
[2025-05-20 19:54] VITALS: BP 135/87; PULSE 72; RESP 18; TEMP 37.2; O2SAT 100
--- NOTE | 2025-05-20 20:16 | ED_ITS ---
HPI - General Adult General Chief complaint: Unspecified Stated complaint: tetnus shot Time Seen by Provider: 05/20/25 20:17 Source: patient and RN notes reviewed Mode of arrival: ambulatory Limitations: no limitations History of Present Illness HPI narrative: 35-year-old male patient presents tonight requesting a tetanus shot update. He has not had a recent skin injury, but realized that he has not had a tetanus shot in quite some time. Related Data Home Medications ?Medication ?Instructions ?Recorded ?Confirmed ?Last Taken ?Type No Home Medications 01/11/25 05/20/25 U nknown History Allergies Allergy/AdvReac Type Severity Reaction Status Date / Time amoxicillin Allergy Severe Throat Verified 05/20/25 19:45 swelling egg Allergy Severe throat Verified 05/20/25 19:45 swelling Penicillins Allergy Severe swelling Verified 05/20/25 19:45 Dairy AdvReac Intermediate GI Uncoded 01/11/25 15:28 PMFSH Social History Social History Smoking status: Never smoker Alcohol intake: current Alcohol use details: 1-4 week Substance use type: does not use Do You Feel Safe in your Home?: Yes Lack of Transportation: No Lack of Food: Never True Current Housing: I Have Housing Concerned About Future Housing: No Difficulty Paying Gas/Electric Bills: No Difficulty Paying for Meds: No Currently Unemployed: No Education: Master's Degree or Higher Difficulty w/ Childcare or Family Care: No Living arrangements: with family 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 Agree to blood products: No Comments At time of signature, I have reviewed and agree with nursing past medical, surgical, social and family history unless otherwise noted. Please see nursing chart for further information. There is no relevant family history pertinent to the presenting complaint Exam Narrative: GENERAL: Well-appearing, well-nourished, and in no acute distress. HEAD: Normocephalic, atraumatic. EYES: EOMI. No redness or drainage. Conjunctivae normal. ENT: Mucous membranes pink and moist. NECK: Normal AROM. CHEST: No respiratory distress. EXTREMITIES: Normal range of motion. SKIN: Warm, dry, no rash. Capillary refill normal. NEURO: No focal deficits. Alert and oriented x3. Gait steady. PSYCH: Normal affect. No signs of depression or anxiety. Course Course Level of Care: Express Care Visit Vital Signs Vital signs: Vital Signs Temperature 98.9 F 05/20/25 19:54 Pulse Rate 72 05/20/25 19:54 Respiratory Rate 18 05/20/25 19:54 Blood Pressure 135/87 05/20/25 19:54 Pulse Oximetry 100 05/20/25 19:54 Oxygen Delivery Room Air 05/20/25 19:54 Temperature 98.9 F 05/20/25 19:54 Pulse Rate 72 05/20/25 19:54 Respiratory Rate 18 05/20/25 19:54 Blood Pressure 135/87 05/20/25 19:54 Pulse Oximetry 100 05/20/25 19:54 Oxygen Delivery Room Air 05/20/25 19:54 Reviewed Medical Decision Making MDM Narrative Medical decision making narrative: 35-year-old male presents today requesting a tetanus shot update. No recent injury. He received a tdap. VSS. Differential Diagnosis Differential Diagnosis: Tetanus shot update Vital Signs Vital Signs: Vital Signs Temperature 98.9 F 05/20/25 19:54 Pulse Rate 72 05/20/25 19:54 Respiratory Rate 18 05/20/25 19:54 Blood Pressure 135/87 05/20/25 19:54 Pulse Oximetry 100 05/20/25 19:54 Oxygen Delivery Room Air 05/20/25 19:54 Temperature 98.9 F 05/20/25 19:54 Pulse Rate 72 05/20/25 19:54 Respiratory Rate 18 05/20/25 19:54 Blood Pressure 135/87 05/20/25 19:54 Pulse Oximetry 100 05/20/25 19:54 Oxygen Delivery Room Air 05/20/25 19:54 Critical Care Time Critical Care Time Critical Care Time: No Discharge Plan Discharge Clinical Impression: Vaccine for tetanus toxoid Patient Disposition: Home Condition: Stable Additional Instructions: Your DTaP has been updated today. Patient Language: Malay Prescriptions: No Action No Home Medications Follow-up/Referrals: Eloisa Freeman APRN [Primary Care Provider, [facility]] Time of Disposition: 20:16
[2025-05-20] MEDS: TETANUS,DIPHTHERIA,AC PERTUSSIS ADULT (0.5 ML) BOOSTRIX IM (20:19)
== END 2025-05-20 20:28 | disposition home or self-care (01) ==
PROVIDERS: Emergency Provider Nurse Practitioner; PCP Nurse Practitioner Adult Health
DX: Z23 Encounter for immunization (principal)
CPT/HCPCS: 90471; 90715; 99212; G0463